=== PATIENT | male | born 1995 ===

== ENCOUNTER 2019-08-16 08:50 | Day surgery (SDC) | payer OTHER | END 2019-08-16 15:15 | disposition home or self-care (01) | LOC: CIR.AMB 08:50 → ADM 09:30 → CIR.AMB 15:15 | PROVIDERS: ATTEND Orthopaedic Surgery | DX: S52.041A Displaced fracture of coronoid process of right ulna, initial encounter for closed fracture (principal); S52.121A Displaced fracture of head of right radius, initial encounter for closed fracture; S53.31XA Traumatic rupture of right ulnar collateral ligament, initial encounter | CPT/HCPCS: 24343; 24363; C1776 ==